=== PATIENT | male | born 1960 | race Hispanic/Latino ===

== ENCOUNTER → 2020-12-10 | Day surgery (SDC) | payer MEDICARE ==
[~2020-12-10] MED LIST: ACTOS15 MG PO; ALLOPURINOL100 MG PO; ASPIRIN81 MG PO; FENTANYL CITRATE/PF 100MCG/2 ML INJ ONE; FLOMAX0.4 MG PO; FUROSEMIDE40 MG PO; GABAPENTIN300 MG PO; HYDRALAZINE HC100 MG PO; JARDIANCE10 MG PO; LIPITOR10 MG PO; METOPROLOL SUCC50 MG PO; MIDAZOLAM HCL 2 MG/2 ML VIAL ONE; OR PHACO EYE KIT ONE; PREOP PHACO EYE KIT ONE; SYNTHROID50 MCG PO; TIZANIDINE HCL4 M1 PO; ZESTRIL10 MG PO; tylenol #3 PO
[2020-12-10 15:30] VITALS: BP 121/62
== END | disposition home or self-care (01) ==
LOC: OR 12:29
PROVIDERS: ATTEND Ophthalmology
DX: H25.12 Age-related nuclear cataract, left eye (principal); I25.10 Atherosclerotic heart disease of native coronary artery without angina pectoris; E11.22 Type 2 diabetes mellitus with diabetic chronic kidney disease; I12.9 Hypertensive chronic kidney disease with stage 1 through stage 4 chronic kidney disease, or unspecified chronic kidney disease; N18.30 Chronic kidney disease, stage 3 unspecified; R07.9 Chest pain, unspecified; F32.A Depression, unspecified; R53.83 Other fatigue; E66.9 Obesity, unspecified; E78.5 Hyperlipidemia, unspecified; R60.0 Localized edema; Z79.84 Long term (current) use of oral hypoglycemic drugs; Z01.812 Encounter for preprocedural laboratory examination; Z20.822 Contact with and (suspected) exposure to COVID-19; Z79.82 Long term (current) use of aspirin; Z98.61 Coronary angioplasty status
CPT/HCPCS: 36415; 66984; 82948; J2250; J3010; U0002

== ENCOUNTER → 2020-12-24 | Day surgery (SDC) | payer MEDICARE ==
[~2020-12-24] MED LIST changes: -FENTANYL CITRATE/PF 100MCG/2 ML INJ ONE
[2020-12-24 12:25] VITALS: BP 171/97
== END | disposition home or self-care (01) ==
LOC: OR 08:00
PROVIDERS: ATTEND Ophthalmology
DX: H25.11 Age-related nuclear cataract, right eye (principal); E66.9 Obesity, unspecified; E11.22 Type 2 diabetes mellitus with diabetic chronic kidney disease; I12.9 Hypertensive chronic kidney disease with stage 1 through stage 4 chronic kidney disease, or unspecified chronic kidney disease; N18.9 Chronic kidney disease, unspecified; I45.10 Unspecified right bundle-branch block; E78.5 Hyperlipidemia, unspecified; Z01.812 Encounter for preprocedural laboratory examination; Z20.822 Contact with and (suspected) exposure to COVID-19; Z79.82 Long term (current) use of aspirin; Z79.84 Long term (current) use of oral hypoglycemic drugs
CPT/HCPCS: 36415; 66984; 82948; U0002; J2250